=== PATIENT | female | born 1990 | race Caucasian/White ===

== ENCOUNTER 2022-06-12 14:37 | Emergency (ER) | payer BC, SELFPAY ==
--- NOTE | 2022-06-12 14:59 | EXP.UTC ---
Discharge Plan Disposition Patient Disposition: Home, Self-Care Condition: Good Prescriptions Prescriptions: New ibuprofen [ibuprofen] 600 mg tablet 600 mg PO Q6HP PRN (Reason: Mild Pain) Qty: 30 0RF Referrals Follow up/Referrals: Provider,Referral, MD [Primary Care Provider] - See instructions Maricarmen Gallagher DPM [Staff Physician] - See instructions Activity Restrictions/Add. Instructions Additional Instructions/Restrictions: Rest the extremity, apply ice for 15 minutes as tolerated three or four times per day, Wear the avery wrap for compression, Elevate the extremity as tolerated while you are resting. Take ibuprofen for pain. I sent in a prescription to your pharmacy. Follow up with Dr. Gallagher (podiatry). I put in a referral but you need to call her office and schedule an appointment. Follow up with your regular doctor. 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 It came down on its edge across her foot near the base of her toes. She has had pain, swelling and bruising since then. Related Data Previous Rx's Medication Instructions Recorded ibuprofen 600 mg tablet 600 mg PO Q6HP PRN Mild Pain #30 06/12/22 tabs Allergies Allergy/AdvReac Type Severity Reaction Status Date / Time ammonia [AMMONIA] Allergy Unknown Verified 06/12/22 15:16 [facility] Disclaimer: The information contained in this section may have been updated after the patient was seen, as this information can be updated by other users. Social History Smoking Status: Never smoker alcohol intake: never current occupational status: other Travel in the last 8 weeks: None ROS Obtained: Yes All systems reviewed & no additional complaints except as documented Constitutional Constitutional: Denies chills and Denies fever(s) Musculoskeletal Musculoskeletal: Reports as per HPI Integumentary/Breasts Skin/Breast: Denies redness, Denies rash and Denies wounds Neurologic Neurologic: Denies paresthesias Physical Exam General General appearance: alert and in no apparent distress Head Head exam: atraumatic, normocephalic and normal inspection Eye Eye exam: Present normal appearance, PERRL and EOMI ENT ENT exam: Present normal exam, normal oropharynx, mucous membranes moist, TM's normal bilaterally and normal external ear exam Neck Neck exam: Present normal inspection, full ROM and trachea midline; Absent meningismus or lymphadenopathy Chest Chest inspection: Present normal inspection and symmetric chest wall rise; Absent tenderness Respiratory Respiratory exam: Present normal lung sounds bilaterally; Absent respiratory distress Cardiovascular Cardiovascular exam: Present regular rate and normal rhythm; Absent JVD Abdominal Exam Abdominal exam: Present soft and normal bowel sounds; Absent distention, tenderness or guarding Extremities Exam Extremities exam: Present normal capillary refill; Absent calf tenderness Expanded Lower Extremity Exam Right: Knee exam: Present normal inspection and full ROM; Absent tenderness Lower leg exam: Present normal inspection and full ROM; Absent tenderness Ankle exam: Present normal inspection and full ROM; Absent tenderness Foot/toe exam: Present full ROM, tenderness and ecchymosis; Absent swelling, abrasion, laceration, deformity, crepitus, dislocation, erythema, amputation, puncture wound, foreign body, calcaneal tenderness, tenderness at base of 5th metatarsal, nail avulsion or subungual hematoma Ne
[2022-06-12 15:00] VITALS: RESP 20; TEMP 36.8; O2SAT 98; BMI 29.2
--- NOTE | 2022-06-12 15:03 | XR_ITS ---
FINAL REPORT CLINICAL HISTORY: toe pain FINDINGS: Right foot Three views were obtained. There is no acute fracture or dislocation. The joint spaces appear normal. No soft tissue abnormality is identified. IMPRESSION: No acute process. Reviewed, Interpreted and Dictated by Cheyenne Rios MD Transcribed by Zeenat Dutton Authenticated and [facility]
--- NOTE | 2022-06-12 15:03 | XR_ITS ---
FINAL REPORT CLINICAL HISTORY: toe pain FINDINGS: Right ankle Three views were obtained. There is no acute fracture or dislocation. The joint spaces appear normal. No soft tissue abnormality is identified. IMPRESSION: No acute process. Reviewed, Interpreted and Dictated by Cheyenne Rios MD Transcribed by Zeenat Dutton Authenticated and [facility]
[2022-06-12 15:50] VITALS: BP 137/80; PULSE 82; RESP 20; TEMP 36.8; O2SAT 98
== END 2022-06-12 15:50 | disposition home or self-care (01) ==
PROVIDERS: Emergency Provider Nurse Practitioner Family
DX: S97.81XA Crushing injury of right foot, initial encounter; W23.0XXA Caught, crushed, jammed, or pinched between moving objects, initial encounter
CPT/HCPCS: 73610; 73630; 99212; 99213; G0463

== ENCOUNTER 2024-07-21 08:40 | Outpatient (CLI) | payer BC, SELFPAY ==
[2024-07-21 09:16] LABS: Basophils % 0.6 % (0.1-2.0); Eosinophils # 0.1 K/mm3 (0.0-0.4); Eosinophils % 1.1 % (0.1-12.0); Hematocrit 40.1 % (37.0-47.0); Hemoglobin 13.4 g/dL (12.2-16.2); Lymphocytes # 0.4 K/mm3 (0.7-4.5); Lymphocytes % 9.4 % (10-50); Mean Corpuscular HGB Conc 33.4 g/dL (31.8-35.4); Mean Corpuscular Hemoglobin 27.6 pg (27.0-31.2); Mean Corpuscular Volume 82.7 fl (81-99); Mean Platelet Volume 10.8 fl (7.4-10.4); Monocytes # 0.3 K/mm3 (0.1-1.0); Monocytes % 5.6 % (1.7-9.3); Neutrophils # 3.9 K/mm3 (1.8-7.8); Neutrophils % 82.7 % (37.0-80.0); Platelet Count 207 K/mm3 (142-424); Red Blood Count 4.85 M/mm3 (4.20-5.40); Red Cell Distribution Width 13.3 % (11.5-17.5); White Blood Count 4.7 K/mm3 (4.8-10.8)
[2024-07-21 09:50] LABS: Albumin Level 4.5 g/dl (3.5-5.0); Chloride 106 mmol/L (98-107); Sodium 136 mmol/L (136-145)
[2024-07-21 09:51] LABS: Potassium 3.9 mmoL/L (3.5-5.1)
[2024-07-21 09:53] LABS: Alanine Aminotransferase 27 U/L (12-78); Albumin/Globulin Ratio 2.3 (1.1-1.8); Anion Gap 9.9 mEq/L (5-15); Aspartate Amino Transferase 23 U/L (14-36); Blood Urea Nitrogen 10 mg/dl (7-17); Carbon Dioxide 24 mmol/L (22.0-30.0); Estimated Glomerular Filt Rate 95 ml/min (>60); GFR (African American) 115 ML/MIN (>60); Total Protein,Serum 6.5 g/dl (6.3-8.2)
[2024-07-21 09:54] LABS: Alkaline Phosphatase 103 U/L (38-126); Bilirubin,Total 0.4 mg/dl (0.2-1.3); Calcium 8.8 mg/dl (8.4-10.2); Chol/HDL Ratio 3.4 (1-3.5); Cholesterol 154 mg/dl (140-200); Glucose 88 mg/dl (74-100); HDL Cholesterol 45 mg/dl (40-60); Triglycerides 76 mg/dl (30-150); VLDL Cholesterol 15 mg/dL (0-40)
[2024-07-21 10:07] LABS: Direct LDL Cholesterol 82.83 mg/dL (100-129)
[2024-07-21 10:25] LABS: Thyroid Stimulating Hormone 0.77 uIU/mL (0.465-4.68)
[2024-07-21 10:40] LABS: 25-OH Vitamin D, Total 23.5 ng/mL (30-100)
[2024-07-21 11:06] LABS: Hemoglobin A1C 4.8 % (4.0-6.0)
[2024-07-22 11:12] LABS: HBsAg Screen Negative (Negative); HCV Ab Non Reactive (Non Reactive); Hep A Ab, IGM Negative (Negative); Hep B Core Ab, IgM Negative (Negative)
== END 2024-07-21 23:59 | disposition home or self-care (01) ==
PROVIDERS: PCP Internal Medicine; Visit Provider Internal Medicine
DX: R53.83 Other fatigue (principal); E66.811 Obesity, class 1; Z68.34 Body mass index [BMI] 34.0-34.9, adult; Z13.1 Encounter for screening for diabetes mellitus; Z11.59 Encounter for screening for other viral diseases
CPT/HCPCS: 36415; 80053; 80061; 80074; 82306; 83036; 84443; 85025; 86803

== ENCOUNTER 2024-08-14 08:15 | Outpatient (CLI) | payer BC, SELFPAY ==
[2024-08-15 16:21] LABS: Deamidated Gliadin Abs, IgA 2 units (0-19); Deamidated Gliadin Abs, IgG 2 units (0-19); Tissue Transglutaminase IgA Ab <2 U/mL (0-3); Tissue Transglutaminase IgG Ab 3 U/mL (0-5)
[2024-08-18 07:36] LABS: Endomysial IgA Antibody Negative (Negative)
[2024-08-19 09:43] LABS: Reticulin IgA Antibody Negative titer (Neg:<1:2.5)
[2024-08-25 12:15] LABS: F013-IgE Peanut <0.10 kU/L (Class 0); F017-IgE Hazelnut (Filbert) <0.10 kU/L (Class 0); F018-IgE Brazil Nut <0.10 kU/L (Class 0); F020-IgE Almond <0.10 kU/L (Class 0); F202-IgE Cashew Nut <0.10 kU/L (Class 0); F256-IgE Walnut <0.10 kU/L (Class 0); F352 IgE Ara h8 <0.10 kU/L (Class 0); F447 IgE Ara h6 <0.10 kU/L (Class 0)
[2024-08-25 16:18] LABS: Miscellaneous Test SCANNED IMAGE
== END 2024-08-14 23:59 | disposition home or self-care (01) ==
LOC: LAB 08:16
PROVIDERS: PCP Family Medicine; Visit Provider Nurse Practitioner
DX: R10.84 Generalized abdominal pain (principal); Z91.018 Allergy to other foods
CPT/HCPCS: 36415; 83516; 86003; 86008; 86255; 86256

== ENCOUNTER 2024-09-07 08:56 | Outpatient (CLI) | payer BC, SELFPAY ==
--- NOTE | 2024-09-07 09:00 | US_ITS ---
PROCEDURE: US TRANSVAGINAL CLINICAL INDICATION: abnormal uterine bleeding COMPARISON: No exams were available for comparison FINDINGS: Transvaginal sonographic images of the pelvis were obtained. UTERUS: 9.4cm x 6.8 cmx 6.1cm retroflexed with a combined endometrial thickness of 20.0 mm. The endometrium appears to have a hyperechoic rim with a hypoechoic center. There are multiple small nabothian cysts within the cervix. A scar is seen. LEFT OVARY: 3.0cmx3.0cmx2.2cm with a volume of 10.3ml. There are several small peripheral follicles. RIGHT OVARY: 2.8 cmx 1.8 cmx1.6 cm with a volume of 4.2ml. There are multiple small peripheral follicles. Both ovaries are seen and appear normal. Doppler flow to both ovaries are seen. There is no fluid in the cul-de-sac. IMPRESSION: 1. Retroflexed uterus upper limits of normal in size and globular in shape. The endometrium is markedly thickened measuring up to 23 mm. It appears to have a hyperechoic rim with hypoechoic center. Would suggest endometrial sampling. Cannot rule out endometrial hyperplasia/endometrial carcinoma. 2. Both ovaries are seen and appear normal. They both have multiple small follicles. 3. No fluid in the cul-de-sac. Dictated by: Jovany Epperson MD 09/07/2024 18:03 Jovany Epperson MD in OV 09/07/2024 18:03
== END 2024-09-07 23:59 | disposition home or self-care (01) ==
LOC: RAD 08:57
PROVIDERS: PCP Family Medicine; Visit Provider Obstetrics & Gynecology
DX: R93.89 Abnormal findings on diagnostic imaging of other specified body structures (principal)
CPT/HCPCS: 76830

== ENCOUNTER 2024-09-08 08:08 | Outpatient (CLI) | payer BC, SELFPAY ==
[2024-09-08 09:26] LABS: Thyroid Stimulating Hormone 1.82 uIU/mL (0.465-4.68)
[2024-09-09 08:17] LABS: Estradiol 86.4 pg/mL (.); LH 6.8 mIU/mL (.); Progesterone 2.7 ng/mL (.)
[2024-09-09 12:32] LABS: Testosterone,Total 23 ng/dL (8-60)
== END 2024-09-08 23:59 | disposition home or self-care (01) ==
LOC: LAB 08:09
PROVIDERS: PCP Family Medicine; Visit Provider Obstetrics & Gynecology
DX: N93.9 Abnormal uterine and vaginal bleeding, unspecified (principal)
CPT/HCPCS: 36415; 82670; 83001; 83002; 84144; 84403; 84443

== ENCOUNTER 2024-10-28 12:15 | Outpatient (CLI) | payer BC, SELFPAY ==
[2024-10-28 12:24] VITALS: BMI 33.0
[2024-10-28 12:53] LABS: Basophils # 0.1 K/mm3 (0-0.2); Basophils % 0.8 % (0.1-2.0); Eosinophils # 0.1 Kmm3 (0.0-0.4); Eosinophils % 1.7 % (0.1-12.0); Hemoglobin 13.5 g/dL (12.2-16.2); Immature Granulocytes # 0.01 10^3uL; Immature Granulocytes % 0.2 %; Lymphocytes # 2.4 K/mm3 (0.7-4.5); Lymphocytes % 39.1 % (10-50); Mean Corpuscular HGB Conc 32.9 g/dL (31.8-35.4); Mean Corpuscular Hemoglobin 27.7 pg (27.0-31.2); Mean Corpuscular Volume 84.2 fl (81-99); Mean Platelet Volume 10.6 fl (7.4-10.4); Monocytes # 0.3 K/mm3 (0.1-1.0); Monocytes % 5.5 % (1.7-9.3); Neutrophils # 3.2 K/mm3 (1.8-7.8); Neutrophils % 52.7 % (37.0-80.0); Nucleated Red Blood Cells # 0 10^3/uL; Nucleated Red Blood Cells % 0 %; Platelet Count 308 K/mm3 (142-424); Red Blood Count 4.87 M/mm3 (4.20-5.40); Red Cell Distribution Width 13.7 % (11.5-17.5); Red Cell Distribution Width-SD 42.2 fL
[2024-10-28 12:59] LABS: Albumin Level 4.5 g/dl (3.5-5.0); Chloride 106 mmol/L (98-107); Potassium 4.3 mmoL/L (3.5-5.1); Sodium 139 mmol/L (136-145)
[2024-10-28 13:02] LABS: Alanine Aminotransferase 24 U/L (12-78); Albumin/Globulin Ratio 1.6 (1.1-1.8); Alkaline Phosphatase 115 U/L (38-126); Anion Gap 8.3 mEq/L (5-15); Aspartate Amino Transferase 28 U/L (14-36); Bilirubin,Total 0.3 mg/dl (0.2-1.3); Blood Urea Nitrogen 8 mg/dl (7-17); Carbon Dioxide 29 mmol/L (22.0-30.0); Creatinine Clearance Estimated 145 mL/min (50-200); Estimated Glomerular Filt Rate 95 ml/min (>60); GFR (African American) 115 ML/MIN (>60); Globulin 2.8 g/dL (1.3-3.2); Total Protein,Serum 7.3 g/dl (6.3-8.2)
[2024-10-28 13:03] LABS: Glucose 94 mg/dl (74-100); HCG Qualitative, Serum Negative (Negative)
== END 2024-10-28 23:59 | disposition home or self-care (01) ==
LOC: PREOP 12:15
PROVIDERS: PCP Family Medicine; Visit Provider Obstetrics & Gynecology
DX: Z01.812 Encounter for preprocedural laboratory examination (principal)
CPT/HCPCS: 80053; 84703; 85025

== ENCOUNTER 2024-11-02 06:05 | Day surgery (SDC) | payer BC, SELFPAY ==
[2024-10-29 10:35] VITALS: BMI 33.0
[2024-11-02] VITALS (9 sets, daily range): BP systolic 110–139; BP diastolic 67–79; PULSE 81–116; RESP 16–18; TEMP 36.1–36.9; O2SAT 95–97
[2024-11-02] MEDS: ACETAMINOPHEN 500MG TAB 1000 MG PO (06:34)
[2024-11-02] MEDS: LACTATED RINGERS 1000ML 1,000 ML 25 ML IV (06:34)
--- NOTE | 2024-11-02 07:01 | EXP.ANES.CKL ---
[facility] Disclaimer: The information contained in this section may have been updated after the patient was seen, as this information can be updated by other users. Medical History Thickened endometrium Abnormal uterine bleeding Vitamin D deficiency Surgical History Hx of dilation and curettage [place] teeth removed Hx of section Hx of tubal ligation Family History Other Cancer Coronary artery disease Diabetes Heart attack Hypertension Stroke Social History Smoking Status: Never smoker alcohol intake: never substance use type: denies use current occupational status: student Travel in the last 8 weeks?: Inside the [place] [facility] Anesthesia Checklist Patient Identification Patient Identification: Arm Band and Family Structural Data Admitted From: Home Planned Operative Procedure/s: Hysteroscopy. D & C. Myosure. Consent for Planned Operative Procedure(s) Verified: Yes Verified Documents: Surgical Consent and History and Physical NPO Status Verified Time NPO: 00:00 Additional verifications Patient : No Anesthesia Reactions: No Hx Blood Transfusions: No Blood Transfusion Reaction: No Cephalosporin Allergy: No Previous Colonoscopy: No Airway Assessment Mallampati Score:: Class I C-Spine Mobility Assessed: Yes TMJ Mobility Assessed: Yes Dentition: Good Dentition Neurological Assessment Level of Consciousness: Awake, Alert, Appropriate and Follows Commands Hx Seizures: No Numbness or tingling in extremities: No Anesthesia Plan Anesthesia Risk discussed: Yes ASA Class: I Anesthesia Type: General
[2024-11-02] MEDS: SODIUM CHLORIDE IRRIG SOLUTION 3,000 ML 25 ML IR (07:48)
--- NOTE | 2024-11-02 08:14 | P.PNANES_ITS ---
[facility] Anesthesia Record Part I Anesthesia Record I Intake, IV Amount: 400 Hydration: Adequate Estimated blood loss (mL): 0 Urine output (mL): 0 Blood Products used (#): none Blood Pressure: 126/77 SaO2: 95 Pulse Rate: 116 Airway Patency: Patent Respiratory Rate: 18 Temperature: 98.4 F Patient is:: Drowsy and Stable Stable to PACU at:: 08:07
--- NOTE | 2024-11-02 08:22 | EXP.OP.NOTE ---
Date of procedure: 11/02/24 Pre-op Diagnosis:: 1. Abnormal uterine bleeding 2. Pelvic pain 3. Dysmenorrhea 4. Thickened endometrium Post-op Diagnosis:: 1. Abnormal uterine bleeding 2. Pelvic pain 3. Dysmenorrhea 4. Thickened endometrium Procedure performed:: Hysteroscopy, dilation and curettage Surgeon:: Valerie Farias DO [employer] Train[employer] Maintenance Worker(s):: N/a BUSINESS ADMINISTRATION PROGRAM CHAIR:: Alexys Wolff Anesthesia: GETA Estimated blood loss (mL): 0 Clinical Note:: Mrs Nicky Benitez is a 34 yo [id number] who presents to [facility] for scheduled procedure. She reports heavy, painful, irregular periods. Periods are usually every 30-35 days but they can go to 56 days. She reports first day of cycle is spotting and then days 2 and 3 are extremely heavy and painful. The next few days are typically light. She admits sometimes she will starting spotting two weeks after she finishes her period. She also experiences occasional RLQ pain, especially around ovulation. Pain is always on the right. Pelvic ultrasound 08/29/24 demonstrated retroflexed uterus upper limits of normal in size and globular in shape. The endometrium is markedly thickened measuring up to 23 mm. It appears to have a hyperechoic rim with hypoechoic center. Would suggest endometrial sampling. Cannot rule out endometrial hyperplasia/endometrial carcinoma. 2. Both ovaries are seen and appear normal. They both have multiple small follicles. 3. No fluid in the cul-de-sac. Operative findings:: 1. On bimanual exam, uterus mildly enlarged, midposition, normal shape. No adnexal masses palpated. Cervix grossly normal. 2. On hysteroscopic exam, bilateral tubal ostia easily visualized. Grossly normal appearing endometrial tissue. No masses or polyps noted Operative note:: Risks, benefits and alternatives were discussed with the patient. Risks include but are not limited to bleeding, infection, uterine perforation and VTE. Patient voiced understanding and agreed to proceed. She was wheeled back to the operating room and placed under general anesthesia without difficulty. She was placed in dorsal lithotomy position and prepped and draped in the normal sterile fashion. Straight catheter was used to drain the bladder. A bimanual exam was performed. A weighted Auvard was placed in the vaginal vault. Single tooth tenaculum was placed on anterior lip of the cervix. Uterus sounded to 9. Sequential Sunil dilators were used to dilate the cervical os. Hysteroscope was tested inserted through the cervix without difficulty. Endometrial cavity was evaluated. See findings above. Pictures were taken. A medium size sharp curette was inserted through the cervix into the uterine cavity and endometrium was curetted with a systematic back and forth movement in a 360 degree manner. Endometrial curettings will be sent to pathology for review. Instruments were removed from the vagina. Tenaculum site was noted to oozing. Silver nitrate stick x 1 applied. Hemostasis was noted. Patient was awaken from anesthesia without difficulty. She was transported to recovery room in stable condition. Patient will be discharged home when awake and ambulating. She was given postop instructions as well as instructions to follow-up in the office in 2 weeks. Condition: stable Disposition: same day Specimens:: 1. Endometrial curettings Complications:: None
--- NOTE | 2024-11-02 08:39 | SUR.PHASEI ---
0838- Patient alert and oriented x3. V/S stable and no C/O pain. Transported to post op via stretcher. Report given to Daja Moy RN.
--- NOTE | 2024-11-02 10:46 | EXP.ANES.II ---
[facility] Anesthesia Record Part II Anesthesia Record Part II Discharge Time: 08:58 Destination: Surgical Day Care (OP Surgery) PACU nurse assessment reviewed?: Yes Patient Condition:: Good Anesthesia Complications:: None Swallowing reflex intact?: Yes Airway Patency: Patent Cyanosis?: No Blood Pressure: 110/67 SaO2: 97 Respiratory Rate: 18 Pulse Rate: 83 Temperature: 97.8 F Mental Status: Alert & Oriented Pain level:: 0 Nausea and/or vomitting:: None Intake, IV Amount: 0 Hydration: Adequate
== END 2024-11-02 09:02 | disposition home or self-care (01) ==
PROVIDERS: PCP Family Medicine; Visit Provider Obstetrics & Gynecology
PROC: 0UDB8ZZ Extraction of Endometrium, Via Natural or Artificial Opening Endoscopic (ICD-10-PCS; CPT 58558; principal; 2024-11-02 07:30)
DX: N93.9 Abnormal uterine and vaginal bleeding, unspecified (principal); R10.2 Pelvic and perineal pain; N94.6 Dysmenorrhea, unspecified; R93.89 Abnormal findings on diagnostic imaging of other specified body structures; Z98.51 Tubal ligation status; Z98.891 History of uterine scar from previous surgery; Z91.09 Other allergy status, other than to drugs and biological substances
CPT/HCPCS: 58558; J1100; J2003; J2250; J2405; J2704; J3010; J7120